=== PATIENT | female | born 1985 | race Caucasian/White ===

== ENCOUNTER → 2023-11-20 10:15 | Outpatient (REF) | payer BC, SELFPAY | LOC: WDC 10:15 | PROVIDERS: ATTENDING PHYSICIAN Nurse Practitioner | DX: N63.11 Unspecified lump in the right breast, upper outer quadrant (principal) | CPT/HCPCS: 76642; 77062; 77066 ==

== ENCOUNTER → 2023-11-23 10:11 | Outpatient (REF) | payer BC, SELFPAY ==
--- NOTE | 2023-11-23 13:53 | OID.BR.INTR ---
[facility] Navigator - Initial
- -
Date of Contact: 11/23/23
Met with patient. Patient given written information on navigator services available at [facility]. Will follow up as needed per protocol.
== END ==
LOC: WDC 10:11
PROVIDERS: ATTENDING PHYSICIAN Nurse Practitioner
DX: N63.10 Unspecified lump in the right breast, unspecified quadrant (principal)
CPT/HCPCS: 88305; 19083; 77065; 88341; 88342; 88360; A4648

== ENCOUNTER 2023-12-14 05:59 | Day surgery (SDC) | payer BC, SELFPAY ==
[2023-12-06 06:36] VITALS: BMI 17.9
[2023-12-06 08:47] LABS: Hematocrit 41.1 % (37.0-47.0); Hemoglobin 13.8 g/dL (12.0-16.0); Mean Corp Hgb Conc. 33.6 g/dL (33.0-37.0); Mean Corpuscular Hgb 30.7 pg (27.0-31.0); Mean Corpuscular Volume 91.5 fL (81.0-99.0); Mean Platelet Volume 11.9 fL (7.4-10.4); Platelet Count 238 10^3/uL (130-400); Red Blood Cell Count 4.49 10^6/uL (4.20-5.40); Red Cell Dist. Width 12.1 % (11.5-14.5); White Blood Cell Count 6.5 10^3/uL (4.8-10.8)
[2023-12-06 09:51] LABS: Prealbumin (Transthyretin) 20.2 mg/dl (17.6-36.0)
[2023-12-06 09:53] LABS: ALT (SGPT) 30 U/L (0-35); AST (SGOT) 48 U/L (14-36); Albumin 4.4 g/dl (3.5-5.0); Alkaline Phosphatase 52 U/L (38-126); Blood Urea Nitrogen 20 mg/dl (7-17); Calcium 9.8 mg/dl (8.4-10.2); Carbon Dioxide 25 mmol/L (22-30); Chloride 103 mmol/L (98-107); Estimated Creatinine Clearance 105 ml/min; Glucose 63 mg/dl (70-99); Potassium 4.5 mmol/L (3.5-5.1); Sodium 138 mmol/L (135-145); Total Bilirubin 1.2 mg/dl (0.2-1.3); Total Protein 6.8 g/dl (6.3-8.2); eGFR > 60.00
[2023-12-06 10:06] LABS: Vitamin D, 25-OH*** 57.2 ng/mL (30-80)
[2023-12-14] VITALS (10 sets, daily range): BP systolic 95–120; BP diastolic 53–97; BMI 17.9
[2023-12-14] MEDS: TYLENOL 1000 MG PO (12:09)
[2023-12-14] MEDS: NORMOSOL-R 1000 IV (12:10)
[2023-12-14] MEDS: DILAUDID 0.25 MG IV (16:22)
== END 2023-12-14 17:21 | disposition home or self-care (01) ==
LOC: SDS 05:59
PROVIDERS: ATTENDING PHYSICIAN Surgery; FAMILY PHYSICIAN Nurse Practitioner
DX: D24.1 Benign neoplasm of right breast (principal); N63.10 Unspecified lump in the right breast, unspecified quadrant
CPT/HCPCS: 19120; 88307; 36415; 80053; 82306; 84134; 85027; 88341; 88342; L8000

== ENCOUNTER → 2024-05-16 11:38 | Outpatient (REF) | payer BC, SELFPAY | LOC: WDC 11:38 | PROVIDERS: ATTENDING PHYSICIAN Nurse Practitioner | DX: Z12.31 Encounter for screening mammogram for malignant neoplasm of breast (principal) | CPT/HCPCS: 77063; 77067 ==

== ENCOUNTER → 2024-09-05 09:58 | Outpatient (REF) | payer BC, SELFPAY | LOC: WDC 09:58 | PROVIDERS: ATTENDING PHYSICIAN Nurse Practitioner | DX: R92.2 Inconclusive mammogram (principal) | CPT/HCPCS: 76641 ==

== ENCOUNTER → 2025-06-24 13:23 | Outpatient (REF) | payer OTHER, SELFPAY | LOC: WDC 13:23 | PROVIDERS: ATTENDING PHYSICIAN Nurse Practitioner | DX: Z12.31 Encounter for screening mammogram for malignant neoplasm of breast (principal) | CPT/HCPCS: 77063; 77067 ==